=== PATIENT | female | born 1990 | race Two or more races ===

== ENCOUNTER → 2020-05-29 | Outpatient (REF) | payer OTHER ==
[2020-05-29 13:02] LABS: BASO % 0.3 % (0.0-1.0); EOS % 0.3 % (0.0-3.0); HEMATOCRIT 43.4 % (36.0-47.0); HEMOGLOBIN 13.8 g/dl (12.0-15.5); LYMPH # 1.9 10^3/uL (1.5-5.0); LYMPH % 33.4 % (24.0-44.0); MEAN CORPUSCULAR HEMOGLOBIN 26.9 pg (27.0-33.0); MEAN CORPUSCULAR HGB CONC 31.8 g/dl (32.0-36.5); MEAN CORPUSCULAR VOLUME 84.6 fl (80.0-96.0); MONO # 0.5 10^3/uL (0.0-0.8); MONO % 9.4 % (0.0-5.0); NEUTROPHILS # 3.2 10^3/uL (1.5-8.5); NEUTROPHILS % 56.4 % (36.0-66.0); PLATELET COUNT, AUTOMATED 274 10^3/uL (150-450); RED BLOOD COUNT 5.13 10^6/uL (4.00-5.40); WHITE BLOOD COUNT 5.8 10^3/uL (4.0-10.0)
[2020-05-29 13:34] LABS: ALBUMIN 3.9 GM/DL (3.2-5.2); ALT/SGPT 23 U/L (12-78); BILIRUBIN,TOTAL 0.5 MG/DL (0.2-1.0); BLOOD UREA NITROGEN 9 MG/DL (7-18); CALCIUM LEVEL 9.1 MG/DL (8.5-10.1); CARBON DIOXIDE LEVEL 28 MEQ/L (21-32); CHLORIDE LEVEL 106 MEQ/L (98-107); CHOLESTEROL LEVEL 212 MG/DL (<200); CHOLESTEROL RISK RATIO 2.163 (<5); CREATININE FOR GFR 0.85 MG/DL (0.55-1.30); FOLLICLE STIMULATING HORMONE 2.6 mIU/mL; GLOMERULAR FILTRATION RATE > 60.0 (>60); GLUCOSE, FASTING 86 MG/DL (70-100); HCG, SERUM QUANTITATIVE < 1.0 MIU/ML; HDL CHOLESTEROL 98 MG/DL (>40); LDL CHOLESTEROL 104 MG/DL (<100); LUTEINIZING HORMONE 2.1 mIU/mL; NON-HDL-C 114 MG/DL; POTASSIUM SERUM 4.3 MEQ/L (3.5-5.1); SODIUM LEVEL 138 MEQ/L (136-145); THYROID STIMULATING HORMONE 0.861 uIU/ML (0.358-3.740); TOTAL PROTEIN 7.8 GM/DL (6.4-8.2); TRIGLYCERIDES LEVEL 48 MG/DL (<150)
[2020-05-29 13:46] LABS: HEMOGLOBIN A1c 5.3 %
[2020-05-30 19:11] LABS: TESTOSTERONE FREE (DIRECT) 3.1 pg/mL (0.0-4.2)
== END ==
LOC: M SFHCLERA 10:08
PROVIDERS: ATTEND Family Medicine
DX: N92.6 Irregular menstruation, unspecified (principal)

== ENCOUNTER → 2020-06-25 | Outpatient (CLI) | payer OTHER ==
[~2020-06-25] MED LIST: PROHANCE 279.3MG/ML 15ML VIAL As Ordered ONE
--- NOTE | 2020-06-25 23:10 | REPVR ---
PROCEDURE INFORMATION: Exam: MR Head Without and With Contrast Exam date and time: 06/25/2020 6:25 PM Age: 30 years old Clinical indication: Pain; Other: Enlarged pituitary and daily headaches; Headache not specified TECHNIQUE: Imaging protocol: MR of the head without and with intravenous contrast. Contrast material: PROHANCE; Contrast volume: 7 ml; Contrast route: INTRAVENOUS (IV); COMPARISON: No relevant prior studies available. FINDINGS: Brain: Normal brain volume. No diffusion restriction to suggest acute ischemia or infarct. No abnormal FLAIR parenchymal signal hyperintensities. No gradient susceptibility blooming within the brain parenchyma to suggest hemorrhage. No midline shift, mass, or fluid collection is present. The brainstem, posterior fossa and cervical medullary junction are preserved. No abnormal enhancement. Cerebral ventricles: Normal. No ventriculomegaly. Sella: Unremarkable pituitary gland with normal size, posterior pituitary bright spot, and enhancement. Bones/joints: Unremarkable. Paranasal sinuses: Normal as visualized. No acute sinusitis. Mastoid air cells: Normal as visualized. No mastoid effusion. Orbits: Unremarkable. Soft tissues: Unremarkable. IMPRESSION: 1. Unremarkable pituitary gland with normal size, posterior pituitary bright spot, and enhancement. 2. Normal brain MR. Electronically signed by: Alek Reynolds On 06/25/2020 23:10:41 PM
== END ==
LOC: M RAD 17:01
PROVIDERS: ATTEND Family Medicine
DX: R51.9 Headache, unspecified (principal); E23.6 Other disorders of pituitary gland

== ENCOUNTER → 2020-07-10 | Outpatient (CLI) | payer OTHER ==
--- NOTE | 2020-07-10 08:50 | REP ---
INDICATION: R10.2 PELVIC AND PERINEAL PAIN COMPARISON: None. TECHNIQUE: Transabdominal pelvic ultrasound followed by transvaginal examination for better evaluation of the endometrium and adnexa with color Doppler evaluation of the ovaries. FINDINGS: Bladder is empty Normal anteverted uterus measures 7.8 x 4.1 x 5.1 cm. The endometrial complex measures 5.2 mm thickness. No discrete uterine or endometrial abnormalities are appreciated. Bilateral ovaries are normal in appearance and vascularity without evidence for torsion. Right ovary measures 3.2 x 1.5 x 2.7 cm; R I = 0.58. Left ovary measures 3.5 x 1.5 x 2.7 cm; R I = 0.42. No pelvic fluid or adnexal mass lesion. IMPRESSION: Normal pelvic ultrasound. <Electronically signed by Marin Rudolph > 07/10/20 [id number]
== END ==
LOC: M WHC 08:11
PROVIDERS: ATTEND Obstetrics & Gynecology
DX: R10.2 Pelvic and perineal pain (principal)